=== PATIENT | male | born 1990 | race Caucasian/White ===

== ENCOUNTER 2020-06-12 13:48 | Emergency (ER) | payer OTHER ==
--- NOTE | 2020-06-12 14:37 | ER Document Report ---
ED Medical Screen (RME) - General Chief Complaint: High Blood Pressure Stated Complaint: ELEVATED BLOOD PRESSURE TRAVEL OUTSIDE OF THE [place] IN LAST 30 DAYS: No - HPI Notes: 06/12/20 14:35 Rapid Medical Exam HPI: Patient is a 30-year-old male who presents to the ER with elevated blood pressure and chest pain early this morning that has now resolved. Patient says he got up at 2 AM to use the restroom and when he stood up he felt very lightheaded and had immediate chest pain with palpitations and shortness of breath. This lasted a few minutes and he checked his blood pressure which was 200 systolic and low 100s diastolic. Patient says he was seen in [place] ER for similar symptoms and elevated blood pressure 2 months ago and was started on HCTZ 25 mg. He has since follow-up with his primary doctor increase to 50 mg daily. He says his blood pressure still remains elevated daily around 160 systolic. No other medical history. Of note RN tells me that patient recently got in contact with biological parents and says his mother had a NM in her late 30s. Patient reports that he is asymptomatic at this time otherwise and a mild headache. Physical Exam: GENERAL: Well-appearing, well-nourished and in no acute distress. HEAD: Atraumatic, normocephalic. ENT: Moist mucous membranes. RESP: Respirations even and unlabored CV- Regular rate. NEURO: No focal neurological deficits. Moves all extremities spontaneously and on command. My involvement in this patients care was limited to a rapid initial assessment. A comprehensive ED assessment and evaluation of the patient, analysis of test results, treatment, and completion of the medical decision making process will be performed by other ER providers. - Related Data Allergies/Adverse Reactions: No Known Allergies Allergy (Unverified 06/12/20 14:25) Home Medications: hctz 50 mg daily Physical Exam - Vital signs Vitals: Temp Pulse Resp BP Pulse Ox 98.6 F 105 H 16 162/106 H 96 06/12/20 13:58 06/12/20 13:58 06/12/20 13:58 06/12/20 13:58 06/12/20 13:58 Course - Vital Signs Vital signs: Temp Pulse Resp BP Pulse Ox 98.6 F 105 H 16 162/106 H 96 06/12/20 13:58 06/12/20 13:58 06/12/20 13:58 06/12/20 13:58 06/12/20 13:58
[2020-06-12 15:08] LABS: ABSOLUTE BASOPHILS # (AUTO) 0.1 10^3/uL (0.0-0.2); ABSOLUTE EOSINOPHILS # (AUTO) 0.2 10^3/uL (0.0-0.6); ABSOLUTE LYMPHOCYTES (AUTO) 2.9 10^3/uL (0.5-4.7); ABSOLUTE NEUT (AUTO) 6.6 10^3/uL (1.7-8.2); BASOPHILS % (AUTO) 0.7 % (0-2); EOSINOPHILS % (AUTO) 1.9 % (0-6); HEMATOCRIT 44.9 % (37.9-51.0); HEMOGLOBIN 16.3 g/dL (13.5-17.0); LYMPHOCYTES % (AUTO) 26.8 % (13-45); MEAN CORPUSCULAR HEMOGLOBIN 30.6 pg (27.0-33.4); MEAN CORPUSCULAR HGB CONC 36.2 g/dL (32.0-36.0); MEAN CORPUSCULAR VOLUME 85 fl (80-97); MONOCYTES % (AUTO) 9.4 % (3-13); PLATELET COUNT 322 10^3/uL (150-450); RED BLOOD COUNT 5.31 10^6/uL (4.35-5.55); RED CELL DISTRIBUTION WIDTH 13.2 % (11.5-14.0); SEGMENTED NEUTROPHILS % (AUTO) 61.2 % (42-78); TOTAL CELLS COUNTED % (AUTO) 100 %; WHITE BLOOD COUNT 10.8 10^3/uL (4.0-10.5)
--- NOTE | 2020-06-12 15:23 | RADIOLOGY REPORT (SQ) ---
EXAM DESCRIPTION: CHEST 2 VIEWS IMAGES COMPLETED DATE/TIME: 06/12/2020 2:52 pm REASON FOR STUDY: chest pain, htn COMPARISON: None. TECHNIQUE: Frontal and lateral radiographic views of the chest acquired. NUMBER OF VIEWS: Two view. LIMITATIONS: None. FINDINGS: LUNGS AND PLEURA: No opacities, masses or pneumothorax. No pleural effusion. MEDIASTINUM AND HILAR STRUCTURES: No masses or contour abnormalities. HEART AND VASCULAR STRUCTURES: Heart normal size. No evidence for failure. BONES: No acute findings. HARDWARE: None in the chest. OTHER: No other significant finding. IMPRESSION: NO SIGNIFICANT RADIOGRAPHIC FINDING IN THE CHEST. TECHNICAL DOCUMENTATION: JOB ID: [id number] 2010 [employer]- All Rights Reserved Reading location - IP/workstation name: [email or web address]
[2020-06-12 15:30] LABS: ALBUMIN 5.5 g/dL (3.5-5.0); ALKALINE PHOSPHATASE 47 U/L (38-126); ANION GAP 13 (5-19); ASPARTATE AMINO TRANSFERASE 34 U/L (17-59); BILIRUBIN,DIRECT 0.2 mg/dL (0.0-0.4); BILIRUBIN,TOTAL 0.8 mg/dL (0.2-1.3); BLOOD UREA NITROGEN 18 mg/dL (7-20); CALCIUM 11.1 mg/dL (8.4-10.2); CARBON DIOXIDE 24 mmol/L (22-30); CHLORIDE 101 mmol/L (98-107); GLUCOSE 108 mg/dL (75-110); POTASSIUM 4.2 mmol/L (3.6-5.0); TOTAL PROTEIN 9.3 g/dL (6.3-8.2)
[2020-06-12 18:06] LABS: APPEARANCE,URINE SLIGHTLY-CLOUDY; BILIRUBIN,URINE NEGATIVE (NEGATIVE); COLOR,URINE YELLOW; GLUCOSE, URINE NEGATIVE (NEGATIVE); KETONES,URINE NEGATIVE (NEGATIVE); LEUKOCYTE ESTERASE,URINE NEGATIVE (NEGATIVE); NITRITE,URINE NEGATIVE (NEGATIVE); PROTEIN,URINE 30 mg/dL (NEGATIVE); URINE SPECIFIC GRAVITY 1.024; UROBILINOGEN,URINE NEGATIVE mg/dL (<2.0)
--- NOTE | 2020-06-12 18:35 | ER Document Report ---
ED General - General Chief Complaint: High Blood Pressure Stated Complaint: ELEVATED BLOOD PRESSURE Time Seen by Provider: 06/12/20 18:34 Primary Care Provider: [facility] [Primary Care Provider] - Follow up as needed TRAVEL OUTSIDE OF THE [place] IN LAST 30 DAYS: No - HPI Notes: 30-year-old male presents for evaluation of high blood pressure. Patient states that he has been diagnosed with high blood pressure a month ago, he was started on hydrochlorothiazide 25 mg and was recently increased to 50 mg via his PCP at the [facility]. Patient states that his blood pressures are typically in the 170s systolic. He states that this morning around 2 AM he got up to urinate, he felt lightheaded when standing, he then sat down and had some sharp chest pain and palpitations, his took his blood pressure and it was 200/100. The chest pain, palpitations and lightheadedness resolved shortly after their onset. He currently denies symptoms. He expresses concern that high blood pressure can cause strokes and heart attacks. He states that he is unaware of any further work-up that his primary care doctor is going to do in terms of evaluation for high blood pressure. - Related Data Allergies/Adverse Reactions: No Known Allergies Allergy (Unverified 06/12/20 14:25) Home Medications: hctz 50 mg daily Past Medical History - General Information source: Patient - Social History Smoking Status: Unknown if Ever Smoked Family History: CAD, Hypertension Patient has homicidal ideation: No - Past Medical History Cardiac Medical History: Reports: Hx Hypercholesterolemia, Hx Hypertension Review of Systems - Review of Systems Constitutional: No symptoms reported EENT: No symptoms reported Cardiovascular: No symptoms reported Respiratory: No symptoms reported Gastrointestinal: No symptoms reported Genitourinary: No symptoms reported Male Genitourinary: No symptoms reported Musculoskeletal: No symptoms reported Skin: No symptoms reported Hematologic/Lymphatic: No symptoms reported Neurological/Psychological: No symptoms reported Physical Exam - Vital signs Vitals: Temp Pulse Resp BP Pulse Ox 98.6 F 105 H 16 162/106 H 96 06/12/20 13:58 06/12/20 13:58 06/12/20 13:58 06/12/20 13:58 06/12/20 13:58 - General General appearance: Appears well, Alert In distress: None - HEENT Head: Normocephalic, Atraumatic Extraocular movements intact: Yes Pupils: PERRL - Respiratory Breath sounds: Normal - Cardiovascular Rhythm: Regular Heart sounds: Normal auscultation Murmur: No - Abdominal Tenderness: Nontender - Extremities General upper extremity: Normal ROM General lower extremity: Normal ROM. No: Edema - Neurological Neuro grossly intact: Yes Cognition: Normal Orientation: AAOx4 - Psychological Associated symptoms: Normal affect - Skin Skin Temperature: Warm Course - Re-evaluation Re-evalutation: 30-year-old male recent diagnosis of hypertension on hydrochlorothiazide 50 mg here with elevated blood pressure reading at home, episode of chest pain which occurred greater than 12 hours ago. He currently is asymptomatic. He is hypertensive, otherwise hemodynamically stable. He is alert and oriented, neurologically intact, no acute distress, heart RRR. His EKG is nonischemic. Full laboratory evaluation ordered through triage. No significant leukocytosis, no acute anemia. Electrolytes ok. Creatinine within normal limits. Troponin negative x2. Urine without UTI or hematuria. Chest x-ray without consolidation. I discussed with patient that it sounds like he does need an antihypertensive medication other than a diuretic. We discussed multiple treatment options. We will start him on amlodipine 5 mg daily. I encouraged him to please call his primary care doctor to discuss that this medication was started, as further refills will be needed. Return precautions given, stable at time of discharge. - Vital Signs Vital signs: Temp Pulse Resp BP Pulse Ox 98.6 F 105 H 17 157/114 H 95 06/12/20 13:58 06/12/20 13:58 06/12/20 17:01 06/12/20 17:01 06/12/20 17:01 - Laboratory Results Result Diagrams: 06/12/20 15:00 06/12/20 15:00 Laboratory Results Interpreted: 06/12/20 06/12/20 06/12/20 15:00 15:00 17:42 WBC 10.8 H MCHC 36.2 H Calcium 11.1 H ALT 70 H Total Protein 9.3 H Albumin 5.5 H Urine Protein 30 H Critical Laboratory Results Reviewed: No Critical Results - Radiology Results Critical Radiology Results Reviewed: No Critical Results - EKG Interpretation by Me Additional EKG results interpreted by me: EKG is interpreted by me. Sinus rhythm, rate 90. Narrow QRS, QTC within normal limits. Early repole pattern. No ST segment elevation or depressions. Discharge - Discharge Clinical Impression: Hypertension Qualifiers: Hypertension type: essential hypertension Qualified Code(s): I10 - Essential (primary) hypertension Disposition: HOME, SELF-CARE Instructions: Calcium Channel Blockers ([facility]) Additional Instructions: Please begin use of amlodipine for high blood pressure. Please be sure to call your doctor to discuss that this medication has been started, it will need to be refilled. Return to the emergency department for any concerning worsening symptoms. Prescriptions: Amlodipine Besylate [Norvasc 5 mg Tablet] 5 mg PO DAILY #30 tablet Referrals: [facility] [Primary Care Provider] - Follow up as needed
[2020-06-12 19:13] VITALS: BP 158/112
--- NOTE | 2020-06-13 08:32 | EKG REPORT ---
SEVERITY:- ABNORMAL ECG - SINUS RHYTHM ABNORMAL T, CONSIDER ISCHEMIA, INFERIOR LEADS ST ELEV, PROBABLE NORMAL EARLY REPOL PATTERN : Confirmed by: Crissy Seaman MD 13-Jun-2020 08:31:29
== END 2020-06-12 19:14 | disposition home or self-care (01) ==
LOC: ER 13:48
DX: I10 Essential (primary) hypertension (principal); R51.9 Headache, unspecified; Z79.899 Other long term (current) drug therapy
CPT/HCPCS: 36415; 71046; 80053; 81001; 84443; 84484; 85025; 93005; 93010; 99285